=== PATIENT | female | born 1990 | race Caucasian/White ===

== ENCOUNTER 2016-10-15 15:52 | Emergency (ER) | payer OTHER ==
[~2016-10-15] VITALS: Ht 167.6 cm; Wt 74.6 kg
[~2016-10-15 15:52] MED LIST: ADVIL200 M1 PO; EXCEDRIN MIGRA1 EAC3 PO; FLEXERIL10 MG PO; FLONASE16 G1 BOTH NARES; GUAIFENESIN600 M1 PO; IMITREX50 MG PO; LEVO-T125 MCG PO; MOTRIN600 MG PO; NAPROSYN500 MG PO; NAPROXEN500 MG PO; NOHOMEMEDS; NORCO 5/3251 TABLET PO; PERCOCET 5/31 TABLET PO; PRENATAL TABLE1 EAC3 PO; VALIUM2 MG PO; ZOFRAN ODT4 MG PO
[2016-10-15] MEDS ORDERED: REGLAN5 MG PO (17:50)
[2016-10-15 18:04] VITALS: BP 119/75
== END 2016-10-15 18:04 | disposition home or self-care (01) ==
LOC: EME 15:52
DX: O26.892 Other specified pregnancy related conditions, second trimester (principal); R51 Headache; Z3A.25 25 weeks gestation of pregnancy
CPT/HCPCS: 99281; 99284; J7030

== ENCOUNTER 2017-01-16 07:34 | Inpatient (IN) | payer OTHER ==
[~2017-01-16] VITALS: Ht 167.6 cm; Wt 76.6 kg
[2017-01-16] VITALS (19 sets, daily range): BP systolic 100–130; BP diastolic 57–84
[~2017-01-16 07:34] MED LIST changes: +REGLAN5 MG PO
[2017-01-16] MEDS ORDERED: ZOFRAN4 MG PO (08:18)
[2017-01-16] MEDS ORDERED: SYNTHROID175 MCG PO (08:18)
[2017-01-16] MEDS ORDERED: PRENATAL TABLE1 EAC3 PO (08:19)
[2017-01-16] MEDS ORDERED: IRON325 M1 PO (08:20)
[2017-01-16 10:00] LABS: EOSINOPHIL (%) 0.8 % (0-5); EOSINOPHIL COUNT 0.1 K/uL (0-0.3); HEMATOCRIT 31.4 % (36.0-46.0); IMMATURE GRANULOCYTE (%) 0.6 % (0.0-0.7); INSTRUMENT ABS NEUTROPHIL CT 5.4 K/uL; LYMPHOCYTE COUNT 1.1 K/uL (1.0-2.8); MCH 28.1 PG (29.0-34.0); MCHC 32.5 G/DL (30.0-36.0); MCV 86.5 FL (83-99); MONOCYTE (%) 7.7 % (3-12); MONOCYTE COUNT 0.6 K/uL (0-0.8); NEUTROPHIL (%) 75.2 % (45-76); NEUTROPHIL COUNT 5.4 K/uL (1.8-6.4); PLATELET COUNT 183 K/uL (156-360); RBC DIS.WIDTH-CV 13.5 % (11.8-14.6); RBC DIS.WIDTH-SD 41.7 % (39-53); RED BLOOD COUNT 3.63 M/uL (3.80-5.20); WHITE BLOOD COUNT 7.1 K/uL (4.1-10.2)
[2017-01-16 12:24] LABS: Estimated Average Glucose 103 mg/dL (70-123); HEMOGLOBIN A1c (GLYCOHEMOGLOB) 5.2 % HGB (Below 5.7)
[2017-01-17 07:20] LABS: EOSINOPHIL (%) 0.4 % (0-5); EOSINOPHIL COUNT 0.1 K/uL (0-0.3); HEMATOCRIT 29.9 % (36.0-46.0); IMMATURE GRANULOCYTE (%) 0.7 % (0.0-0.7); IMMATURE GRANULOCYTE COUNT 0.1 K/uL; INSTRUMENT ABS NEUTROPHIL CT 9.3 K/uL; LYMPHOCYTE COUNT 1.4 K/uL (1.0-2.8); MCH 27.2 PG (29.0-34.0); MCHC 31.4 G/DL (30.0-36.0); MCV 86.7 FL (83-99); MONOCYTE (%) 5.9 % (3-12); MONOCYTE COUNT 0.7 K/uL (0-0.8); NEUTROPHIL (%) 80.4 % (45-76); NEUTROPHIL COUNT 9.3 K/uL (1.8-6.4); PLATELET COUNT 188 K/uL (156-360); RBC DIS.WIDTH-CV 13.5 % (11.8-14.6); RED BLOOD COUNT 3.45 M/uL (3.80-5.20); WHITE BLOOD COUNT 11.6 K/uL (4.1-10.2)
[2017-01-17 07:54] VITALS: BP 101/59
[2017-01-17 16:11] VITALS: BP 107/74
[2017-01-18 08:13] VITALS: BP 106/67
[2017-01-18] MEDS ORDERED: IBUPROFEN800 MG PO (11:34)
[2017-01-18] MEDS ORDERED: LEVOTHYROXINE200 MC1 PO (11:35)
[2017-01-18] MEDS ORDERED: IRON325 M1 PO (11:36)
== END 2017-01-18 12:41 | disposition home or self-care (01) | DRG 775 ==
LOC: LDRP-OP → 2WEST 07:35 → LDRP-OP 16:30 → 2WEST 17:17 → LDRP-OP 03-04 13:24
PROVIDERS: Advanced Practice Midwife
PROC: 10E0XZZ Delivery of Products of Conception, External Approach (ICD-10-PCS; principal; 2017-01-16)
PROC: 10907ZC Drainage of Amniotic Fluid, Therapeutic from Products of Conception, Via Natural or Artificial Opening (ICD-10-PCS; 2017-01-16)
PROC: 3E0P7GC Introduction of Other Therapeutic Substance into Female Reproductive, Via Natural or Artificial Opening (ICD-10-PCS; 2017-01-16)
DX: O36.5931 Maternal care for other known or suspected poor fetal growth, third trimester, fetus 1 (principal); D62 Acute posthemorrhagic anemia; O99.354 Diseases of the nervous system complicating childbirth; Z3A.38 38 weeks gestation of pregnancy; Z37.0 Single live birth; O99.824 Streptococcus B carrier state complicating childbirth; E66.3 Overweight; O99.214 Obesity complicating childbirth; E03.9 Hypothyroidism, unspecified; O99.284 Endocrine, nutritional and metabolic diseases complicating childbirth; G43.909 Migraine, unspecified, not intractable, without status migrainosus; O99.02 Anemia complicating childbirth; Z14.8 Genetic carrier of other disease; Z68.27 Body mass index [BMI] 27.0-27.9, adult
CPT/HCPCS: 83036; 84439; 84443; 85025; 86900; 86901; C1755; J0595; J2540; J7120; Q0169

== ENCOUNTER 2017-01-29 01:31 | Emergency (ER) | payer OTHER ==
[~2017-01-29] VITALS: Ht 167.6 cm; Wt 71.1 kg
[~2017-01-29 01:31] MED LIST changes: +IBUPROFEN800 MG PO; +IRON325 M1 PO; +LEVOTHYROXINE200 MC1 PO; +SYNTHROID175 MCG PO; +ZOFRAN4 MG PO
[2017-01-29 01:35] VITALS: BP 111/85
[2017-01-29] MEDS ORDERED: PERCOCET 5/31 TABLET PO (03:20)
[2017-01-30] MEDS ORDERED: SYNTHROID175 MCG PO (10:14)
== END 2017-01-29 04:24 | disposition home or self-care (01) ==
LOC: EME 01:31
PROC: 2W38X1Z Immobilization of Right Upper Extremity using Splint (ICD-10-PCS; principal; 2017-01-29)
DX: S52.021A Displaced fracture of olecranon process without intraarticular extension of right ulna, initial encounter for closed fracture (principal); S52.121A Displaced fracture of head of right radius, initial encounter for closed fracture; W10.9XXA Fall (on) (from) unspecified stairs and steps, initial encounter
CPT/HCPCS: 73070; 73200; 99281; 99284

== ENCOUNTER 2017-02-03 10:38 | Day surgery (SDC) | payer OTHER ==
[~2017-02-03] VITALS: Ht 167.6 cm; Wt 68.0 kg
[2017-02-03 10:59] VITALS: BP 142/84
[2017-02-03 11:29] LABS: HEMATOCRIT 32.9 % (36.0-46.0); MCV 87.5 FL (83-99)
[2017-02-03 20:55] VITALS: BP 140/90
[2017-02-03 21:50] VITALS: BP 146/90
== END 2017-02-03 21:54 | disposition home or self-care (01) ==
LOC: SDC 10:38
PROVIDERS: Orthopaedic Surgery
PROC: 0PSK04Z Reposition Right Ulna with Internal Fixation Device, Open Approach (ICD-10-PCS; principal; 2017-02-03)
DX: S52.021A Displaced fracture of olecranon process without intraarticular extension of right ulna, initial encounter for closed fracture (principal); W10.8XXA Fall (on) (from) other stairs and steps, initial encounter; Y93.01 Activity, walking, marching and hiking; Y92.007 Garden or yard of unspecified non-institutional (private) residence as the place of occurrence of the external cause; D64.9 Anemia, unspecified
CPT/HCPCS: 73070; 76000; 85014; 85018; C1713; J0690; J1100; J1170; J1885; J2250; J2405; J3010